=== PATIENT | male | born 2000 | race Caucasian/White ===

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

== ENCOUNTER 2019-03-27 12:01 | Emergency (ER) | payer SELFPAY ==
[2019-03-27] MEDS ORDERED: Ondansetron PF 4 MG/2 ML Vial ONE (12:43)
[2019-03-27] MEDS ORDERED: Diphenoxylate HCl/Atropine Tablet ONE (12:43)
[2019-03-27 13:00] LABS: #Basophils 0.1 thou/uL (0.0-0.2); #Lymphocytes 1.5 thou/uL (1.20-3.40); #Monocytes 0.7 thou/uL (0.11-0.59); #Neutrophils 10.2 thou/uL (1.40-6.50); %Basophils 0.5 % (0.0-1.0); %Eosinophils 0.2 % (0.0-10.0); %Lymphocytes 11.7 % (28.0-48.0); %Monocytes 5.9 % (0.0-4.0); %Neutrophils 81.7 % (31.0-61.0); Hemoglobin 15.7 g/dL (14.0-18.0); Mean Corpuscular HGB CONC 32.9 g/dL (32.0-36.0); Mean Corpuscular Hemoglobin 30.4 pg (25.0-35.0); Mean Corpuscular Volume 92.4 fL (78.0-98.0); Mean Platelet Volume 6.6 fL (7.4-10.4); Platelet Count 268 thou/uL (130-400); RBC Distribution Width 10.9 % (11.5-14.5); Red Blood Cell (RBC) Count 5.15 mill/uL (4.00-5.20); White Blood Cell (WBC) Count 12.5 thou/uL (4.8-10.8)
[2019-03-27 13:19] LABS: ALT (SGPT) 24 U/L (8-55); AST (SGOT) 20 U/L (10-45); Albumin 4.6 g/dL (3.5-5.0); Alkaline Phosphatase 55 U/L (50-130); Anion Gap 15 mmol/L (10-20); BUN (Urea Nitrogen) 8 mg/dL (8.4-21.0); Bilirubin, Total 0.4 mg/dL (0.2-1.2); Calc. Creatinine Clearance 0 mL/min (70-130); Calcium 9.8 mg/dL (7.8-10.44); Carbon Dioxide 25 mmol/L (22-29); Chloride 102 mmol/L (98-107); Estimated GFR-MDRD Greater than 90; Globulin 3.1 g/dL (2.4-3.5); Glucose 92 mg/dL (70-105); Lipase 10 U/L (8-78); Potassium 3.8 mmol/L (3.5-5.1); Protein, Total 7.7 g/dL (6.0-8.3); Sodium 138 mmol/L (136-145)
[2019-03-27] MEDS ORDERED: metroNIDAZOLE 500 MG/100 ML BAG ONE (13:25)
[2019-03-27] MEDS ORDERED: Ciprofloxacin Lactate/D5W 400 mg/200 ml Premix ONE (13:25)
[2019-03-27] MEDS ORDERED: metroNIDAZOLE 250 MG TAB ONE (13:29)
== END 2019-03-27 14:30 | disposition home or self-care (01) ==
LOC: MADERS 12:01
DX: A09 Infectious gastroenteritis and colitis, unspecified (principal); F17.210 Nicotine dependence, cigarettes, uncomplicated
CPT/HCPCS: 80053; 82150; 83690; 85025; 96365; 96375; J0744; J2405

== ENCOUNTER 2020-07-05 07:29 | Emergency (ER) | payer SELFPAY | END 2020-07-05 08:34 | disposition home or self-care (01) | LOC: MADERS 07:29 | DX: K64.4 Residual hemorrhoidal skin tags (principal); F17.210 Nicotine dependence, cigarettes, uncomplicated | CPT/HCPCS: 99283 ==

== ENCOUNTER 2021-04-19 16:00 | Emergency (ER) | payer SELFPAY ==
[2021-04-19] MEDS ORDERED: Dexamethasone 4 MG TAB ONE (16:46)
[2021-04-19] MEDS ORDERED: Acetaminophen/Codeine 30-300mg Tablet ONE (16:46)
[2021-04-19] MEDS ORDERED: Ondansetron ODT 4 MG TAB ONE (16:46)
== END 2021-04-19 18:21 | disposition home or self-care (01) ==
LOC: MADERS 16:00
DX: J45.909 Unspecified asthma, uncomplicated (principal); B34.9 Viral infection, unspecified; R11.0 Nausea; F17.210 Nicotine dependence, cigarettes, uncomplicated
CPT/HCPCS: 71045; J7620; J8540; Q0162

== ENCOUNTER 2021-06-08 11:40 | Emergency (ER) | payer SELFPAY ==
[2021-06-08 21:00] LABS: SARS-CoV-2 PCR by NAA DETECTED (NotDetected)
== END 2021-06-08 12:32 | disposition home or self-care (01) ==
LOC: MADERS 11:40
DX: U07.1 COVID-19 (principal); F17.210 Nicotine dependence, cigarettes, uncomplicated; J45.909 Unspecified asthma, uncomplicated
CPT/HCPCS: 99406; U0003; U0005

== ENCOUNTER 2023-02-19 14:34 | Emergency (ER) | payer SELFPAY ==
[2023-02-19] MEDS ORDERED: predniSONE 20 MG TAB ONE ×2 (15:20)
[2023-02-19] MEDS ORDERED: Ipratropium/Albuterol 3 ML NEB ONE (15:20)
== END 2023-02-19 16:15 | disposition home or self-care (01) ==
LOC: MADERS 14:34
DX: J20.9 Acute bronchitis, unspecified (principal); F17.210 Nicotine dependence, cigarettes, uncomplicated; E66.9 Obesity, unspecified
CPT/HCPCS: 71045; 87081; 87430; 87804; 94640; J7512; J7620

== ENCOUNTER 2023-06-25 13:11 | Emergency (ER) | payer SELFPAY ==
[2023-06-25] MEDS ORDERED: Albuterol 200 PUFF (6.7GM INHALER) ONE (13:47)
[2023-06-25] MEDS ORDERED: predniSONE 20 MG TAB ONE (13:47)
[2023-06-25] MEDS ORDERED: Tetracaine 0.5% PF 4 ML BOT ONE (13:47)
[2023-06-25] MEDS ORDERED: Fluorescein Opthalmic Strip ONE (13:47)
== END 2023-06-25 14:30 | disposition home or self-care (01) ==
LOC: MADERS 13:11
DX: R06.9 Unspecified abnormalities of breathing (principal); J45.909 Unspecified asthma, uncomplicated; H57.8A1 Foreign body sensation, right eye; F17.210 Nicotine dependence, cigarettes, uncomplicated
CPT/HCPCS: 87081; 87430; 87635; 87804; 99284; J7512

== ENCOUNTER 2023-07-16 11:27 | Emergency (ER) | payer SELFPAY ==
[2023-07-16 12:14] LABS: #Basophils 0.1 thou/uL (0.0-0.2); #Eosinphils 0.2 thou/uL (0.0-0.7); #Monocytes 0.5 thou/uL (0.11-0.59); #Neutrophils 2.9 thou/uL (1.40-6.50); %Basophils 1.1 % (0.0-1.0); %Eosinophils 2.8 % (0.0-10.0); %Lymphocytes 35.7 % (21.0-51.0); %Monocytes 8.8 % (0.0-10.0); %Neutrophils 51.7 % (42.0-75.0); Hematocrit 47.9 % (42.0-52.0); Mean Corpuscular HGB CONC 33.5 g/dL (32.0-36.0); Mean Corpuscular Hemoglobin 31.2 pg (27.0-31.0); Mean Corpuscular Volume 93.2 fl (78.0-98.0); Mean Platelet Volume 7.2 fL (7.4-10.4); Platelet Count 291 10x3/uL (130-400); RBC Distribution Width 12.3 % (11.5-14.5); Red Blood Cell (RBC) Count 5.14 mill/uL (4.70-6.10); White Blood Cell (WBC) Count 5.5 10x3/uL (4.8-10.8)
[2023-07-16] MEDS ORDERED: Ipratropium/Albuterol 3 ML NEB ONE (12:19)
[2023-07-16] MEDS ORDERED: Ondansetron PF 4 MG/2 ML Vial ONE (12:19)
[2023-07-16] MEDS ORDERED: Sodium Chloride 0.9% 500 ML ONE (12:20)
[2023-07-16] MEDS ORDERED: Sodium Chloride 0.9% 100 ML ONE (12:20)
[2023-07-16] MEDS ORDERED: methylPREDNISolone Sod Succ/PF 125 MG/2 ML VIAL ONE (12:20)
[2023-07-16] MEDS ORDERED: cefTRIAXone (ROCEPHIN) 1 GM VIAL ONE (12:20)
[2023-07-16 12:29] LABS: ALT (SGPT) 25 U/L (8-55); AST (SGOT) 17 U/L (5-34); Albumin 4.2 g/dL (3.5-5.0); Alkaline Phosphatase 45 U/L (40-110); Anion Gap 13 mmol/L (10-20); BUN (Urea Nitrogen) 11 mg/dL (8.9-20.6); Bilirubin, Total 0.5 mg/dL (0.2-1.2); Calc. Creatinine Clearance 0 mL/min (70-130); Calcium 9.3 mg/dL (7.8-10.44); Carbon Dioxide 25 mmol/L (22-29); Chloride 106 mmol/L (98-107); Estimated GFR 129; Glucose 98 mg/dL (70-105); Lipase 24 U/L (8-78); Potassium 4.4 mmol/L (3.5-5.1); Protein, Total 7.2 g/dL (6.0-8.3); Sodium 140 mmol/L (136-145)
[2023-07-16 13:35] LABS: SARS-CoV-2 E Target Negative; SARS-CoV-2 N2 Target Negative; SARS-CoV-2 NAA Rapid Test Not Detected (NotDetected); SARS-CoV-2 RdRP gene Negative
== END 2023-07-16 13:45 | disposition home or self-care (01) ==
LOC: MADERS 11:27
DX: R05.9 Cough, unspecified (principal); R11.2 Nausea with vomiting, unspecified; F17.210 Nicotine dependence, cigarettes, uncomplicated
CPT/HCPCS: 71045; 74018; 80053; 83605; 83690; 85025; 87081; 87430; 87804; 96365; 96375; J0696; J2405; J2930; J3490; J7030; J7620; U0002

== ENCOUNTER 2024-05-19 07:17 | Emergency (ER) | payer SELFPAY ==
[2024-05-19] MEDS ORDERED: Dexamethasone 4 MG TAB ONE (08:20)
[2024-05-19] MEDS ORDERED: Ketorolac Tromethamine 30 MG (1 mL) VIAL ONE (08:20)
== END 2024-05-19 08:37 | disposition home or self-care (01) ==
LOC: MADERS 07:17
DX: M54.42 Lumbago with sciatica, left side (principal); F17.210 Nicotine dependence, cigarettes, uncomplicated
CPT/HCPCS: 96372; 99283; J1885; J8540

== ENCOUNTER 2024-06-20 11:07 | Emergency (ER) | payer SELFPAY | END 2024-06-20 12:02 | disposition home or self-care (01) | LOC: MADERS 11:07 | DX: M62.830 Muscle spasm of back (principal); F17.210 Nicotine dependence, cigarettes, uncomplicated | CPT/HCPCS: 99283 ==